=== PATIENT | female | born 1970 | race Caucasian/White ===

== ENCOUNTER 2019-12-18 03:21 | Emergency (ER) | payer OTHER, SELFPAY ==
--- NOTE | ~2019-12-18 | CT_ITS ---
EXAMINATION: CT abdomen pelvis w con DATE: 12/18/2019 04:42 INDICATION: Right lower quadrant and groin pain for 2 days TECHNIQUE: Computed tomography (CT) of the abdomen and pelvis was performed with 100 cc Omnipaque 350 intravenous contrast. The dose-length product was 1499.55 mGy-cm. Automated exposure control and ite rative reconstruction technique were employed. COMPARISON: None. FINDINGS: Lung bases are unremarkable. No significant pleural or pericardial effusion. Heart size is normal. No significant vascular abnormality. No lymphadenopathy. The liver, spleen, pancreas, adrenal glands and left kidney are unremarkable. There is a punctate non obstructing right renal stone. No ureteral stones or hydronephrosis There are gallstones. No secondary findings to suggest cholecystitis. There is an IUD present. Bladde r wall appears mildly thickened. Normal appendix. Nonobstructive bowel gas pattern. No free air or fr ee fluid. Mild degenerative changes of the lumbar spine most advanced at L4-5. IMPRESSION: 1. No acute abdominal abnormality. 2: Cholelithiasis. 3: Punctate nonobstructing right nephrolithiasis. 4: Mild urinary bladder wall thickening which may be due to underdistention or cystitis. Consider cor relation with urinalysis. Reviewed, dictated and finalized at location A. IMPRESSION: 1. No acute abdominal abnormality. 2: Cholelithiasis. 3: Punctate nonobstructing right nephrolithiasis. 4: Mild urinary bladder wall thickening which may be due to underdistention or cystitis. Consider correlation with urinalysis.
[2019-12-18 03:24] VITALS: BP 162/74; PULSE 94; RESP 20; TEMP 37.3; O2SAT 97
--- NOTE | 2019-12-18 03:36 | ED.ABDPAIN ---
HPI - Abdominal Pain General Chief Complaint: Unspecified Stated Complaint: hernia? Time Seen by Provider: 12/18/19 03:25 Source: patient Mode of arrival: ambulatory Limitations: no limitations History of Present Illness HPI narrative: Patient is a 49-year-old female who presents to the emergency department with complaint of right lower quadrant/right groin pain. Patient reports onset of symptoms late yesterday evening. Patient notes the pain is worse with movement including turning over in bed and moving her right leg. Patient denies any urinary symptoms, nausea, vomiting, diarrhea, fever, chills, or sweats. Patient does report having noticed some blood in her stool prior to tonight's episode that does not sound to necessarily be related. MD elicited complaint: abdominal pain Pertinent past history: none Onset (ago): hour(s) Pain Consistency: constant Location: RLQ, pelvis and groin Quality: sharp Migration to: no migration Exacerbating factors: movement Associated symptoms: denies other symptoms Related Data Allergies Allergy/AdvReac Type Severity Reaction Status Date / Time latex Allergy Unknown Verified 12/18/19 03:31 Review of Systems Review of Systems: All systems reviewed & are unremarkable except as noted in HPI and below Constitutional: Constitutional: Denies chills and Denies fever(s) Gastrointestinal: Gastrointestinal: Reports abdominal pain, Reports hematochezia, Denies constipation, Denies diarrhea, Denies nausea and Denies vomiting Genitourinary: Genitourinary: Denies hematuria, Denies dysuria and Denies flank pain Musculoskeletal: Musculoskeletal: Denies back pain PMFSH Past Medical History Medical History (Updated 12/18/19 @ 06:06 by Arlene Barry MD) Seasonal allergies Surgical History Surgical History (Updated 12/18/19 @ 03:40 by Arlene Barry MD) No significant past surgical history Social History Social History (Updated 12/18/19 @ 03:40 by Arlene Barry MD) Smoking status: Never smoker Gender identity (if verbalized by the patient): Female Exam Const: General: cooperative, no acute distress and alert Nutritional Appearance: obese Orientation/consciousness: patient oriented x3 Limitations: no limitations HENMT: Mouth: Yes lip normal and Yes moist mucous membranes Resp: Effort & Inspection: normal respiratory effort Auscultation: clear to auscultation bilaterally Cardio: Rate: regular rate Rhythm: regular rhythm GI: GI Palp: Yes Soft to palpation and Yes Tenderness to palpation present (GI) (Diffuse right pelvic/groin/lower quadrant) Auscultation: normal bowel sounds : General: Yes no CVA tenderness Skin: General skin exam: normal color Neuro: General: patient oriented x3 Cognition (Neuro): normal cognition Speech: normal speech Extrem: General: normal to inspection, full ROM and no clubbing, cyanosis or edema Psych: Mental Status: mental status grossly normal Affect: normal affect Attitude: cooperative Course Course Emergency Course: Patient with no acute findings on testing to account for pain. 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 Discussed with patient possibility she could have a groin strain or muscle tear causing her pain. Patient advised to use of anti-inflammatories and try ice and then switch to heat if not improving. Will refer to on-call primary care physician for follow-up care. Vital Signs Vital signs: Vital Signs Temperature 99.1 F 12/18/19 03:24 Pulse Rate 94 12/18/19 03:24 Respiratory Rate 20 12/18/19 03:24 Blood Pressure 162/74 H 12/18/19 03:24 Pulse Oximetry 97 12/18/19 03:24 Temperature 99.1 F 12/18/19 03:24 Pulse Rate 76 12/18/19 05:26 Respiratory Rate 20 12/18/19 05:26 Blood Pressure 151/83 H 12/18/19 05:26 Pulse Oximetry 98 12/18/19 05:26 MDM - Abdominal Pain Lab Data Attestation: I reviewed the patient's lab results. Resu
[2019-12-18] MEDS: KETOROLAC 30 MG/ML VIAL (*BKC) IV PUSH (03:59)
[2019-12-18 04:06] LABS: Basophils Absolute Auto 0.1 K/mm3 (0.0-0.1); Basophils Percent Auto 0.8 % (0.2-1.2); Eosinophils Absolute Auto 0.2 K/mm3 (0-0.3); Eosinophils Percent Auto 1.9 % (0-4.4); Hematocrit 39.3 % (37.0-47.0); Hemoglobin 13.2 g/dL (12.0-15.0); Immature Granulocyte Absolute 0.02 K/mm3 (0.00-0.031); Immature Granulocyte Percent A 0.2 % (0-0.5); Lymphocytes Absolute Auto 2.82 K/mm3 (0.9-3.2); Mean Corpuscular HGB Conc 33.6 g/dl (32-36); Mean Corpuscular Hemoglobin 30.3 pg (26-34); Mean Corpuscular Volume 90.1 fl (80-100); Monocytes Absolute Auto 0.9 K/mm3 (0.1-0.6); Monocytes Percent Auto 10.4 % (2.6-8.5); Neutrophils Absolute Auto 4.4 K/mm3 (1.3-6.7); Neutrophils Percent Auto 52.7 % (45.5-73.1); Platelet Count Result 335 k/mm3 (150-375); Red Blood Count 4.36 M/mm3 (4.2-5.4); Red Cell Distribution Width 11.8 % (11.5-14.5); White Blood Count 8.3 K/mm3 (4.5-10.0)
[2019-12-18 04:14] LABS: Add Urine Microscopic? NO; Appearance Urine Clear (Clear); Bilirubin Urine Negative (Negative); Blood Urine Negative (Negative); Color Urine Yellow (Yellow); Glucose Urine UA Negative (Negative); Ketones Urine Negative (Negative); Leukocyte Esterase Ur Negative LEU/UL (Negative); Mucus Urine Rare /lpf; Nitrate Urine Negative (Negative); Protein Urine Negative (Negative); RBC Urine 0-2 /hpf (0-2); Squamous Epithelial Cell Urine Rare /hpf (Few); Urobilinogen Urine Negative mg/dL (<2.0); WBC Urine 0-3 /hpf
[2019-12-18 04:23] LABS: Alanine Aminotransferase 25 U/L (4-35); Albumin Level 4.3 g/dL (3.5-5.1); Alkaline Phosphatase 111 U/L (38-126); Aspartate Amino Transferase 24 U/L (14-36); Bilirubin,Total 0.3 mg/dL (0.2-1.3); Blood Urea Nitrogen 14 mg/dL (7-17); Calcium 8.8 mg/dL (8.4-10.2); Carbon Dioxide 23 mmol/L (22-30); Chloride 104 mmol/L (98-107); Estimated Glomerular Filt Rate > 60; Glucose 107 mg/dL (65-105); Lipase 113 U/L (23-300); Potassium 4.2 mmol/L (3.4-5.0); Sodium 135 mmol/L (137-145)
[2019-12-18 05:26] VITALS: BP 151/83; PULSE 76; RESP 20; O2SAT 98
[2019-12-18 06:27] VITALS: BP 140/82; PULSE 70; RESP 20; O2SAT 98
== END 2019-12-18 06:29 | disposition home or self-care (01) ==
PROVIDERS: Emergency Provider Emergency Medicine
DX: R10.31 Right lower quadrant pain (principal)
CPT/HCPCS: 36415; 74177; 80053; 81003; 81025; 83690; 85025; 96374; 99284; J1885; Q9967